=== PATIENT | female | born 1940 | race Caucasian/White ===

== ENCOUNTER 2017-04-20 09:15 | Inpatient (IN) | payer MEDICARE, OTHER ==
[2017-04-19 21:28] LABS: ALBUMIN 3.2 G/DL (3.5-5.0); CALCIUM, SERUM 8.6 MG/DL (8.5-10.4); CHLORIDE, SERUM 86 MMOL/L (96-112); CO2 (CARBON DIOXIDE) 30 MMOL/L (24-34); CREATININE 1.01 MG/DL (0.55-1.02); GFR AFRICAN AMERICAN 63 ML/MIN (>=60); GFR NON AFRICAN AMERICAN 54 ML/MIN (>=60); GLOBULIN 3.2 G/DL (2.5-4.1); GLUCOSE, SERUM 110 MG/DL (60-99); POTASSIUM, SERUM 3.9 MMOL/L (3.5-5.3); SGOT(AST) 98 U/L (5-40); SGPT(ALT) 116 U/L (5-65); SODIUM, SERUM 125 MMOL/L (135-148); TOTAL BILIRUBIN 0.4 MG/DL (0-1.2); TOTAL PROTEIN 6.4 G/DL (6.0-8.5)
[2017-04-19 21:35] LABS: ALKALINE PHOSPHATASE 71 U/L (45-117); BUN (BLOOD UREA NITROGEN) 12 MG/DL (6-23)
[~2017-04-20] VITALS: Ht 160 cm; Wt 69.0 kg
--- NOTE | ~2017-04-20 | DS ---
Discharge Summary [id number] [place]. [address] NAME: CHRISTINA WILKES : 42 STATUS : DIS IN PAT#: [id number] AGE: 77 ADM/REG DATE : 04/20/17 MR#: [id number] REPORT SERV DATE: 04/28/17 DICTATED BY: ASHISH FUNEZ DATE: 04/27/17 REPORT STATUS : Draft TRANSCRIBED BY: MODL DATE: 04/27/17 ADMISSION DATE: 04/20/2017 DISCHARGE DATE: 04/27/2017 DISCHARGE DIAGNOSES: 1. Urinary tract infection, culture showing Enterococcus, present on admission. 2. Fever. 3. Generalized weakness. 4. Hypertension. 5. Abdominal pain, resolved. 6. Chronic hyponatremia. 7. Transaminitis, resolved. 8. History of fibromyalgia. 9. Chronic prednisone therapy. DISCHARGE MEDICATIONS: Discharge medicines are as follows: Atenolol 25 mg twice a day; vitamin B12, 1000 mcg daily; calcium with vitamin D 500 mg three times a day; vitamin D3, 1000 units p.o. daily; Zestril 40 mg daily; multivitamin one tablet daily; Klor-Con 20 mEq twice a day; prednisone 5 mg daily; Bactrim DS one tablet twice a day for three more days to complete therapy after 04/30/2017; tramadol 50 mg four times a day p.r.n. for pain; hydrochlorothiazide 50 mg daily; Pepcid 40 mg twice a day; Systane ophthalmic drops twice a day p.r.n. in both eyes; and Prolia 60 mg subcutaneously every 6 months. HISTORY OF PRESENT ILLNESS: This is a pleasant 77-year-old white female who presented with fevers, abdominal pain, and weakness; please see initial H and P of Dr. Codey Headley as the patient was admitted to Hospitalist Service for further evaluation and treatment. Lab work and cultures were obtained, and the patient was given IV hydration initially. PROCEDURES AND IMAGING DURING THIS ADMISSION: Include 1. A CT scan of the abdomen and pelvis on 04/21/2017 that showed fatty infiltration of the liver and uncomplicated diverticulosis but no evidence for any acute diverticulitis. 2. An echocardiogram showing an ejection fraction of 55%, mild diastolic dysfunction, and mild left atrial enlargement. HOSPITAL COURSE: The patient was seen by Dr. Natanael Akins initially, and in review of her lab work, noted a procalcitonin that was elevated at 1.03. It was thought that the elevated liver test transaminitis was related to recent dosage of cefdinir, and of course, this was stopped and not continued. She had some diarrhea, but a C. difficile testing was negative, and she underwent the above-described CT scan of the abdomen and pelvis. The patient did continue to have some mild abdominal pain, some weakness, dyspnea, and slight decrease in her overall H and H. The echocardiogram was ordered and reviewed and is described above as well. Again, as stated, her ALT and AST both were declined. She was seen and evaluated by Physical Therapy and Occupational Therapy who did recommend rehab at discharge. I began seeing the patient on 04/24/2017 where she did have a slight low-grade fever of 100. Urinalysis showed greater than 180 white blood cells and a urine culture did come back finally showing an Enterobacter that was sensitive to Bactrim, and she was started on this Discharge Summary [address] [address] NAME: CHRISTINA WILKES : 42 STATUS : DIS IN PAT#: [id number] AGE: 77 ADM/REG DATE : 04/20/17 MR#: [id number] REPORT SERV DATE: 04/28/17 DICTATED BY: ASHISH FUNEZ DATE: 04/27/17 REPORT STATUS : Draft TRANSCRIBED BY: DELILAH DATE: 04/27/17 on 04/24/2017. I did start her on some IV fluids and decreased her lisinopril initially to make sure that her kidney function would be amendable to this Bactrim. I also added hydralazine to her regimen as well. Overall, the patient has tolerated the antibiotic well and has continued to progress well. She is still quite weak and the plan is still for rehab in long term facility at discharge. She did become approved for [facility] and was felt safe for discharge to that facility on 04/27/2017 with the above medication regimen as described. I have instructed her to follow up with her primary care doctor, Dr. Killian, after her discharge from [facility] and to follow up with her urologist if indicated in the future for recurrent urinary tract infections. I updated the family and the patient at bedside. Multiple questions were answered. Greater than 30 minutes spent on this discharge for medication, teaching, followup, planning, and further disposition. My collaborative physician is Dr. Ashish Funez. CSC/MODL Mateusz Johnson, RN TEACHER Ashish Funez MD / [id number] CC: MD Tim Neumann M.D.
--- NOTE | ~2017-04-20 | HP ---
History And Physical [address] [place]. [address] NAME: CHRISTINA WILKES : 42 STATUS : ADM IN [facility]#: [id number] AGE: 77 ADM/REG DATE : 04/20/17 MR#: [id number] REPORT SERV DATE: 04/20/17 DICTATED BY: ISAAC MILLER DATE: 04/20/17 REPORT STATUS : Draft TRANSCRIBED BY: MODL DATE: 04/20/17 DATE OF ADMISSION: 04/20/2017 REASON FOR ADMISSION: Direct admission from Dr. Killian's office for workup of fever of unknown origin, dehydration, and hyponatremia. CHIEF COMPLAINT: "I have been having fever and this abdominal pain and I am very very weak." HISTORY OF PRESENT ILLNESS: A 77-year-old white female with a history of hypertension, reflux, chronic low back pain, chronic joint pain from fibromyalgia along with chronic urinary tract infections. She is followed by Dr. Soria and had a cystoscopy done by Dr. Soria on Sunday, a week and a half ago, for workup of her frequent UTIs. She states that after the procedure she started having some abdominal pain and some weakness and felt like the procedure was not done under sterile conditions. The patient had a CT scan of her abdomen and pelvis done on April 11, which showed mild asymmetric prominence of the right renal pelvis of uncertain clinical significance. 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 Since she had the procedure done, she started having worsening weakness. On Sunday, she was very weak, and then over the weekend, her weakness continued, including on Sunday to the point where she did not even go to [facility]. Her had been urging her to go seek medical attention, but she kept declining. Then finally on Sunday, she went to [facility] and had a reported temperature of 102. With that and concern for UTI with those findings, she was sent directly to [facility] ER on Sunday where she was found to have a sodium level of around 125 and concern for urinary tract infection. The patient states that she did get a dose of Rocephin and immediately had a rash in the emergency room. She was discharged from the ER by Dr. Cartwright and prescribed cefdinir #14 tablets for her urinary tract infection. She continues to take that medication for several days. On Sunday night after her ER visit, she states that she woke up very confused and talking crazy had a very restless night, which is unusual for her. Then on Sunday through Sunday, she felt like she was a zombie and was just not as alert as she used to be. On , she contacted her physician who felt that she was allergic to cefdinir and started on Macrobid. She had one pill at the time of this dictation. She reported to her PCP's office yesterday and was noted to have a temp of 99.3. Repeat UA was ordered and other blood work was ordered, and given her overall dehydration, hyponatremia, and worsening symptoms, the patient presented to the [facility] as a direct admission. REVIEW OF SYSTEMS: The patient admits to continuing fever of 102, positive nausea and positive vomiting x1 episode today, chronic back pain, chronic joint pain, which she attributes to her fibromyalgia. Denies any tick-borne illnesses or exposure to tick bites. She admits to right lower and left lower quadrant abdominal pain. She admits to an atypical presentation for a UTI as she typically has urgency, but at this time, she is not. No chest pain, shortness of breath, cough, headaches, or neck pain. PAST MEDICAL HISTORY: Fibromyalgia, hypertension, and stress incontinence. History And Physical [address] [place]. [address] NAME: CHRISTINA WILKES : 42 STATUS : ADM IN [facility]#: [id number] AGE: 77 ADM/REG DATE : 04/20/17 MR#: [id number] REPORT SERV DATE: 04/20/17 DICTATED BY: ISAAC MILLER DATE: 04/20/17 REPORT STATUS : Draft TRANSCRIBED BY: MODMariajose DATE: 04/20/17 PAST SURGICAL HISTORY: She had two bladder surgeries, hysterectomy, bilateral salpingo- oophorectomy, shoulder surgery, cholecystectomy, repair of a bladder prolapse by Dr. Mon. SOCIAL HISTORY: She denies any alcohol, smoking, or illegal drug use. She is . She has four kids. 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 FAMILY HISTORY: Her parents had heart disease and diabetes. ALLERGIES: AUGMENTIN, WHICH CAUSES HER TO HAVE A RASH. PERCOCET, WHICH CAUSES MOUTH BLISTERS. MEDICATIONS: Include atenolol 25 mg twice a day, hydrochlorothiazide 25 mg once a day, potassium chloride 20 mEq daily, Flexeril 10 mg p.r.n., Nexium 40 mg daily, lisinopril 40 mg once a day, tramadol 50 mg three times a day p.r.n., calcium, prednisone 5 mg once a day, Pepcid 40 mg daily, and mag oxide daily. PHYSICAL EXAMINATION: VITAL SIGNS: Blood pressure is 139/63, temperature is 97.3, pulse is 78, and saturating 96% on room air. GENERAL: She is mildly ill appearing, weak appearing, but nontoxic, very pleasant, in no acute distress, alert and oriented x3. HEENT: Normocephalic and atraumatic head. Extraocular muscles are intact. Oropharynx is clear. Mouth is very dry. NECK: Supple. CARDIAC: Regular rhythm. No murmurs, rubs, or gallops. PULMONARY: Diminished breath sounds throughout. ABDOMEN: Soft. It is tender to palpation to the left lower quadrant and right lower quadrant. Positive bowel sounds. EXTREMITIES: Show no clubbing, cyanosis, or edema. NEUROLOGIC: No focal deficits. SKIN: Warm and dry. LABORATORY DATA: Labs show a sodium of 125, chloride 86, albumin 3.2, ALT 116 AST 98, T-bili is normal that was dated on 04/19/2017. Blood cultures from 04/16/2017 are no growth to date. IMAGING: Chest x-ray from 04/19/2017 shows no acute process. CT scan of the abdomen and pelvis dated 04/11/2017 shows mild asymmetric prominence of the right renal pelvis, uncertain clinical significance. No nephrolithiasis. No ureterolithiasis. There is dense beam-hardening artifact from the left total hip prosthesis, limiting the evaluation of the left lower bladder wall, otherwise, no bladder wall thickening or discrete mass, status post cholecystectomy, there is mild diverticulosis but no diverticulitis, chronic insufficiency fracture of the superior L1 vertebra. History And Physical [address] [address] NAME: CHRISTINA WILKES : 42 STATUS : ADM IN [facility]#: [id number] AGE: 77 ADM/REG DATE : 04/20/17 MR#: [id number] REPORT SERV DATE: 04/20/17 DICTATED BY: ISAAC MILLER DATE: 04/20/17 REPORT STATUS : Draft TRANSCRIBED BY: DELILAH DATE: 04/20/17 IMPRESSION: 1. Fever of unknown origin. 2. Transaminitis, likely secondary to adverse reaction to cefdinir, as evidenced by the temporal relation with abnormal LFTs now compared to normal LFTs on 04/16/2017 prior to initiation of cefdinir. 3. Hyponatremia. 4. Suspected adverse reaction to cefdinir. 5. Dehydration. 6. Right lower and left lower quadrant abdominal pain. 7. Reflux. 8. Fibromyalgia. 9. Hypertension. PLAN: 1. The plan is to do IV fluids. 2. Blood cultures with procalcitonin and UA and repeat urine culture. 3. Hepatitis panel. 4. We will hold off on any further imaging as the patient has already had a CT scan. We will await to see if the above intervention improves her symptoms. 5. Hold off on any antibiotics as there was no definitive source of infection at this time and the patient is not septic, so we will obtain a KUB to evaluate her abdominal pain. The patient is a full code. Dr. Akins to assume care of this patient on 04/21/2017. MINGO/DELILAH Isaac Miller MD / [id number] CC: Evelio Mckeon M.D. Ross A. Cohn, M.D.
[~2017-04-20 09:15] MED LIST: ATEN25 PO; CALTRA600D PO; CAPOTEN100 MG PO; CIP5 PO; FLEX PO; HCTZ25B PO; HYDROCHLOROT25 MG PO; HYDROCHLOROT50 MG PO; IMMUPLEX PO; KDUR10 PO; KLOR-CON M2020 MEQ PO; LOVENOX; MENEST0.625 MG OR; MULTIVITAMI1 PO; NEXIUM20 M1 PO; NEXIUM40 PO; OCUVITE PO; OS500+D PO; P5 PO; ULTRAM50 PO; VITAMIN B-121000 MC1 SL; ZYRTEC ALLGY10 MG PO
[2017-04-20 12:42] LABS: BASOPHILS 0.1 %; BASOPHILS ABSOLUTE 0.01 10/3/uL (0.0-0.16); EOSINOPHILS 0.7 %; EOSINOPHILS ABSOLUTE 0.07 10/3/uL (0.0-0.53); HEMATOCRIT 30.9 % (36.0-48.0); HEMOGLOBIN 10.5 g/dL (12.0-16.0); IMMATURE GRANULOCYTES 0.2 %; IMMATURE GRANULOCYTES ABSOLUTE 0.02 10/3/uL (0.0-0.11); LYMPHOCYTES 4.4 %; LYMPHOCYTES ABSOLUTE 0.41 10/3/uL (0.67-4.30); MANUAL DIFF NO %; MEAN CORPUSCULAR HEMOGLOB 28.6 pg (26.0-34.0); MEAN CORPUSCULAR VOLUME 84.2 fL (80-100); MONOCYTES 4.1 %; MONOCYTES ABSOLUTE 0.38 10/3/uL (0.21-1.20); NEUTROPHILS 90.5 %; NEUTROPHILS ABSOLUTE 8.49 10/3/uL (2.02-8.40); PLATELET COUNT 217 10/3/uL (150-400); RED CELL COUNT 3.67 10/6/uL (4.0-5.6); WHITE BLOOD CELLS 9.4 10/3/uL (4.5-10.5)
[2017-04-20 12:51] LABS: INTERNATIONAL NORMAL RATI 1.1 UNITS (-); PARTIAL THROMBO TIME 36.4 SEC (22.5-37.2)
[2017-04-20 12:53] LABS: PROTIME (NOT ORD) 14.1 SEC (12.0-14.5)
[2017-04-20 13:00] LABS: A/G RATIO 0.7 (0.7-1.9); ALBUMIN 2.8 G/DL (3.5-5.0); ALKALINE PHOSPHATASE 109 U/L (45-117); BUN (BLOOD UREA NITROGEN) 14 MG/DL (6-23); CALCIUM, SERUM 8.8 MG/DL (8.5-10.4); CHLORIDE, SERUM 89 MMOL/L (96-112); CO2 (CARBON DIOXIDE) 28 MMOL/L (24-34); CREATININE 0.98 MG/DL (0.55-1.02); GFR AFRICAN AMERICAN 65 ML/MIN (>=60); GFR NON AFRICAN AMERICAN 56 ML/MIN (>=60); GLUCOSE, SERUM 89 MG/DL (60-99); LACTATE 1.6 MMOL/L (0.3-2.4); PHOSPHORUS, SERUM 3.3 MG/DL (2.5-4.5); POTASSIUM, SERUM 3.8 MMOL/L (3.5-5.3); SGOT(AST) 196 U/L (5-40); SGPT(ALT) 192 U/L (5-65); SODIUM, SERUM 128 MMOL/L (135-148); TOTAL BILIRUBIN 0.5 MG/DL (0-1.2); TOTAL PROTEIN 6.8 G/DL (6.0-8.5)
[2017-04-20] MEDS ORDERED: MACROBID PO (13:19)
[2017-04-20] MEDS ORDERED: ULTRAM50 PO (13:20)
[2017-04-20] MEDS ORDERED: HYDROCHLOROT50 MG PO (13:20)
[2017-04-20] MEDS ORDERED: P5 PO (13:21)
[2017-04-20] MEDS ORDERED: ZESTRIL40 MG PO (13:21)
[2017-04-20] MEDS ORDERED: ATEN25 PO (13:22)
[2017-04-20] MEDS ORDERED: PEPCID40 MG PO (13:22)
[2017-04-20] MEDS ORDERED: CYANO1000T PO (13:23)
[2017-04-20] MEDS ORDERED: KLOR-CON M2020 MEQ PO (13:23)
[2017-04-20] MEDS ORDERED: MULTIVITAMI1 PO (13:23)
[2017-04-20] MEDS ORDERED: VITAMIN D31000 UNIT PO (13:24)
[2017-04-20] MEDS ORDERED: OS500+D PO (13:24)
[2017-04-20] MEDS ORDERED: SYSTANE OPH (13:25)
[2017-04-20] MEDS ORDERED: PROLIA60 MG/1 ML SC (13:26)
[2017-04-20 14:00] LABS: PROCALCITONIN 1.03 ng/mL (<0.5)
[2017-04-20 16:26] LABS: ASCORBIC ACID (UR NOT ORDER) NEG (NEG); BILIRUBIN, URINE NEGATIVE (NEG); KETONE, URINE NEGATIVE (NEG); LEUKOCYTE ESTERASE(NOT OR SMALL (NEG); WBC (NOT ORDERED) (RFLEX) 10 (0-5)
[2017-04-21 05:15] LABS: BASOPHILS 0.4 %; BASOPHILS ABSOLUTE 0.03 10/3/uL (0.0-0.16); EOSINOPHILS 2.2 %; EOSINOPHILS ABSOLUTE 0.16 10/3/uL (0.0-0.53); HEMATOCRIT 30.8 % (36.0-48.0); HEMOGLOBIN 10.7 g/dL (12.0-16.0); IMMATURE GRANULOCYTES 0.1 %; IMMATURE GRANULOCYTES ABSOLUTE 0.01 10/3/uL (0.0-0.11); LYMPHOCYTES 16.4 %; LYMPHOCYTES ABSOLUTE 1.18 10/3/uL (0.67-4.30); MEAN CORPUS HGB CONC 34.7 g/dL (32.0-36.0); MEAN CORPUSCULAR HEMOGLOB 29.2 pg (26.0-34.0); MEAN CORPUSCULAR VOLUME 84.2 fL (80-100); MEAN PLATELET VOLUME 8.9 fL (9.2-13.0); MONOCYTES 4.6 %; MONOCYTES ABSOLUTE 0.33 10/3/uL (0.21-1.20); NEUTROPHILS 76.3 %; NEUTROPHILS ABSOLUTE 5.49 10/3/uL (2.02-8.40); PLATELET COUNT 244 10/3/uL (150-400); RED CELL COUNT 3.66 10/6/uL (4.0-5.6); WHITE BLOOD CELLS 7.2 10/3/uL (4.5-10.5)
[2017-04-21 05:16] LABS: MANUAL DIFF NO %
[2017-04-21 05:35] LABS: A/G RATIO 0.7 (0.7-1.9); ALBUMIN 2.6 G/DL (3.5-5.0); ALKALINE PHOSPHATASE 108 U/L (45-117); BUN (BLOOD UREA NITROGEN) 11 MG/DL (6-23); CALCIUM, SERUM 8.4 MG/DL (8.5-10.4); CHLORIDE, SERUM 96 MMOL/L (96-112); CO2 (CARBON DIOXIDE) 26 MMOL/L (24-34); CREATININE 0.86 MG/DL (0.55-1.02); GFR AFRICAN AMERICAN 76 ML/MIN (>=60); GFR NON AFRICAN AMERICAN 66 ML/MIN (>=60); GLOBULIN 3.9 G/DL (2.5-4.1); GLUCOSE, SERUM 94 MG/DL (60-99); POTASSIUM, SERUM 3.9 MMOL/L (3.5-5.3); SGOT(AST) 116 U/L (5-40); SGPT(ALT) 178 U/L (5-65); SODIUM, SERUM 130 MMOL/L (135-148); TOTAL BILIRUBIN 0.4 MG/DL (0-1.2); TOTAL PROTEIN 6.5 G/DL (6.0-8.5)
[2017-04-21 13:17] LABS: FREE T4 1.36 NG/DL (0.76-1.46); TROPONIN I <0.02 NG/ML (<0.05)
[2017-04-22 05:09] LABS: BASOPHILS 0.8 %; BASOPHILS ABSOLUTE 0.05 10/3/uL (0.0-0.16); EOSINOPHILS 2.9 %; EOSINOPHILS ABSOLUTE 0.17 10/3/uL (0.0-0.53); HEMATOCRIT 28.9 % (36.0-48.0); HEMOGLOBIN 9.7 g/dL (12.0-16.0); IMMATURE GRANULOCYTES 0.3 %; IMMATURE GRANULOCYTES ABSOLUTE 0.02 10/3/uL (0.0-0.11); LYMPHOCYTES 18.1 %; LYMPHOCYTES ABSOLUTE 1.07 10/3/uL (0.67-4.30); MEAN CORPUS HGB CONC 33.6 g/dL (32.0-36.0); MEAN CORPUSCULAR HEMOGLOB 28.4 pg (26.0-34.0); MEAN CORPUSCULAR VOLUME 84.8 fL (80-100); MONOCYTES 6.9 %; MONOCYTES ABSOLUTE 0.41 10/3/uL (0.21-1.20); PLATELET COUNT 238 10/3/uL (150-400); RBC DISTRIBUTION WIDTH 14.3 % (12.0-16.0); RED CELL COUNT 3.41 10/6/uL (4.0-5.6); WHITE BLOOD CELLS 5.9 10/3/uL (4.5-10.5)
[2017-04-22 05:24] LABS: A/G RATIO 0.6 (0.7-1.9); ALBUMIN 2.5 G/DL (3.5-5.0); ALKALINE PHOSPHATASE 90 U/L (45-117); BUN (BLOOD UREA NITROGEN) 8 MG/DL (6-23); CALCIUM, SERUM 8.6 MG/DL (8.5-10.4); CHLORIDE, SERUM 95 MMOL/L (96-112); CO2 (CARBON DIOXIDE) 27 MMOL/L (24-34); CREATININE 0.87 MG/DL (0.55-1.02); GFR AFRICAN AMERICAN 75 ML/MIN (>=60); GFR NON AFRICAN AMERICAN 65 ML/MIN (>=60); GLOBULIN 3.9 G/DL (2.5-4.1); GLUCOSE, SERUM 83 MG/DL (60-99); SGOT(AST) 67 U/L (5-40); SGPT(ALT) 134 U/L (5-65); SODIUM, SERUM 128 MMOL/L (135-148); TOTAL BILIRUBIN 0.4 MG/DL (0-1.2); TOTAL PROTEIN 6.4 G/DL (6.0-8.5)
[2017-04-22 05:25] LABS: MANUAL DIFF NO %
[2017-04-22 06:08] LABS: PROCALCITONIN 0.36 ng/mL (<0.5)
[2017-04-22 15:30] LABS: RETICULOCYTE COUNT 0.7 % (0.5-2.5); RETICULOCYTE COUNT ABSOLUTE 22.2 10/3/uL (20.2-119.8)
[2017-04-22 15:48] LABS: T PROTEIN (ELECT)(NOT OR 6.4 G/DL (6.0-8.5)
[2017-04-22 16:45] LABS: FERRITIN 339 NG/ML (8-252); IRON BINDING CAPACITY 203 MCG/DL (225-410); IRON, SERUM 18 MCG/DL (35-150)
[2017-04-23 05:02] LABS: A/G RATIO 0.5 (0.7-1.9); ALBUMIN 2.3 G/DL (3.5-5.0); ALKALINE PHOSPHATASE 85 U/L (45-117); CALCIUM, SERUM 8.4 MG/DL (8.5-10.4); CHLORIDE, SERUM 94 MMOL/L (96-112); CO2 (CARBON DIOXIDE) 27 MMOL/L (24-34); CREATININE 1.08 MG/DL (0.55-1.02); GFR AFRICAN AMERICAN 58 ML/MIN (>=60); GFR NON AFRICAN AMERICAN 50 ML/MIN (>=60); GLOBULIN 4.5 G/DL (2.5-4.1); SGPT(ALT) 111 U/L (5-65); SODIUM, SERUM 130 MMOL/L (135-148); TOTAL BILIRUBIN 0.6 MG/DL (0-1.2); TOTAL PROTEIN 6.8 G/DL (6.0-8.5)
[2017-04-23 05:04] LABS: BUN (BLOOD UREA NITROGEN) 12 MG/DL (6-23); GLUCOSE, SERUM 120 MG/DL (60-99); POTASSIUM, SERUM 4.2 MMOL/L (3.5-5.3); SGOT(AST) 56 U/L (5-40)
[2017-04-23 05:13] LABS: BASOPHILS 0.6 %; BASOPHILS ABSOLUTE 0.04 10/3/uL (0.0-0.16); EOSINOPHILS 2.9 %; EOSINOPHILS ABSOLUTE 0.19 10/3/uL (0.0-0.53); HEMATOCRIT 28.5 % (36.0-48.0); HEMOGLOBIN 9.6 g/dL (12.0-16.0); IMMATURE GRANULOCYTES 0.6 %; IMMATURE GRANULOCYTES ABSOLUTE 0.04 10/3/uL (0.0-0.11); LYMPHOCYTES 16.2 %; LYMPHOCYTES ABSOLUTE 1.06 10/3/uL (0.67-4.30); MEAN CORPUS HGB CONC 33.7 g/dL (32.0-36.0); MEAN CORPUSCULAR HEMOGLOB 28.7 pg (26.0-34.0); MEAN CORPUSCULAR VOLUME 85.3 fL (80-100); MONOCYTES 7.8 %; MONOCYTES ABSOLUTE 0.51 10/3/uL (0.21-1.20); NEUTROPHILS 71.9 %; NEUTROPHILS ABSOLUTE 4.72 10/3/uL (2.02-8.40); PLATELET COUNT 281 10/3/uL (150-400); RBC DISTRIBUTION WIDTH 14.3 % (12.0-16.0); RED CELL COUNT 3.34 10/6/uL (4.0-5.6); WHITE BLOOD CELLS 6.6 10/3/uL (4.5-10.5)
[2017-04-23 05:14] LABS: MANUAL DIFF NO %
[2017-04-23 10:02] LABS: HEPATITIS B SURFACE ANTIGEN NON-REACTIVE (NON-REACT)
[2017-04-23 10:17] LABS: HEPATITIS C ANTIBODY NON-REACTIVE (NON-REACT)
[2017-04-23 10:18] LABS: HEPATITIS B CORE AB IGM NON-REACTIVE (NON-REAC)
[2017-04-23 10:19] LABS: HEP A ANTIBODY IGM NON-REACTIVE (NON-REACT)
[2017-04-23 14:31] LABS: ASCORBIC ACID (UR NOT ORDER) NEG (NEG); BILIRUBIN, URINE NEGATIVE (NEG); KETONE, URINE NEGATIVE (NEG); LEUKOCYTE ESTERASE(NOT OR LARGE (NEG)
[2017-04-23 14:32] LABS: WBC (NOT ORDERED) (RFLEX) > 182 (0-5)
[2017-04-23 16:39] LABS: HEMATOCRIT 28.3 % (36.0-48.0); HEMOGLOBIN 9.9 g/dL (12.0-16.0)
[2017-04-24 11:43] LABS: A/G 0.88 RATIO (0.9-2.10); ALB RELATIVE % 46.9 % (60.0-89.0); ALPHA 1 (ELECTRO) 0.41 GM/DL (0.1-0.4); ALPHA 1 RELAT % (NOT ORD) 6.4 % (1.0-4.0); ALPHA 2 (ELECTRO) 1.13 GM/DL (0.5-1.10); ALPHA 2 RELAT % 17.7 % (4.5-26.0); BETA GLOBULIN (SPE) 0.91 GM/DL (0.60-1.30); BETA RELATIVE % 14.2 % (9.0-22.0); GAMMA GLOBULIN (SPE) 0.95 G/DL (0.70-1.60); GAMMA RELAT % 14.8 % (6.0-22.0)
[2017-04-25 06:58] LABS: BASOPHILS 0.1 %; BASOPHILS ABSOLUTE 0.01 10/3/uL (0.0-0.16); EOSINOPHILS 1.3 %; EOSINOPHILS ABSOLUTE 0.13 10/3/uL (0.0-0.53); HEMATOCRIT 29.8 % (36.0-48.0); HEMOGLOBIN 10.4 g/dL (12.0-16.0); IMMATURE GRANULOCYTES 0.7 %; IMMATURE GRANULOCYTES ABSOLUTE 0.07 10/3/uL (0.0-0.11); LYMPHOCYTES 12.4 %; LYMPHOCYTES ABSOLUTE 1.26 10/3/uL (0.67-4.30); MEAN CORPUS HGB CONC 34.9 g/dL (32.0-36.0); MEAN CORPUSCULAR HEMOGLOB 29.2 pg (26.0-34.0); MEAN CORPUSCULAR VOLUME 83.7 fL (80-100); MEAN PLATELET VOLUME 9.5 fL (9.2-13.0); MONOCYTES 8.3 %; MONOCYTES ABSOLUTE 0.84 10/3/uL (0.21-1.20); NEUTROPHILS 77.2 %; NEUTROPHILS ABSOLUTE 7.84 10/3/uL (2.02-8.40); RBC DISTRIBUTION WIDTH 14.6 % (12.0-16.0); RED CELL COUNT 3.56 10/6/uL (4.0-5.6)
[2017-04-25 07:00] LABS: MANUAL DIFF NO %; PLATELET COUNT 408 10/3/uL (150-400); WHITE BLOOD CELLS 10.2 10/3/uL (4.5-10.5)
[2017-04-25 07:09] LABS: BUN (BLOOD UREA NITROGEN) 11 MG/DL (6-23); CALCIUM, SERUM 8.6 MG/DL (8.5-10.4); CHLORIDE, SERUM 95 MMOL/L (96-112); CREATININE 0.92 MG/DL (0.55-1.02); GFR AFRICAN AMERICAN 70 ML/MIN (>=60); GFR NON AFRICAN AMERICAN 60 ML/MIN (>=60); GLUCOSE, SERUM 116 MG/DL (60-99); POTASSIUM, SERUM 4.2 MMOL/L (3.5-5.3); SODIUM, SERUM 128 MMOL/L (135-148)
[2017-04-25 07:10] LABS: CO2 (CARBON DIOXIDE) 22 MMOL/L (24-34)
[2017-04-26 04:30] LABS: BASOPHILS 0.1 %; BASOPHILS ABSOLUTE 0.01 10/3/uL (0.0-0.16); EOSINOPHILS 0.5 %; EOSINOPHILS ABSOLUTE 0.05 10/3/uL (0.0-0.53); HEMATOCRIT 27.5 % (36.0-48.0); HEMOGLOBIN 9.6 g/dL (12.0-16.0); IMMATURE GRANULOCYTES 0.8 %; IMMATURE GRANULOCYTES ABSOLUTE 0.08 10/3/uL (0.0-0.11); LYMPHOCYTES 11.5 %; LYMPHOCYTES ABSOLUTE 1.14 10/3/uL (0.67-4.30); MANUAL DIFF NO %; MEAN CORPUS HGB CONC 34.9 g/dL (32.0-36.0); MEAN CORPUSCULAR HEMOGLOB 29.3 pg (26.0-34.0); MEAN CORPUSCULAR VOLUME 83.8 fL (80-100); MEAN PLATELET VOLUME 9.3 fL (9.2-13.0); MONOCYTES 9.6 %; MONOCYTES ABSOLUTE 0.95 10/3/uL (0.21-1.20); NEUTROPHILS 77.5 %; NEUTROPHILS ABSOLUTE 7.65 10/3/uL (2.02-8.40); PLATELET COUNT 394 10/3/uL (150-400); RBC DISTRIBUTION WIDTH 14.6 % (12.0-16.0); RED CELL COUNT 3.28 10/6/uL (4.0-5.6); WHITE BLOOD CELLS 9.9 10/3/uL (4.5-10.5)
[2017-04-26 04:47] LABS: BUN (BLOOD UREA NITROGEN) 11 MG/DL (6-23); CALCIUM, SERUM 8.5 MG/DL (8.5-10.4); CHLORIDE, SERUM 97 MMOL/L (96-112); CO2 (CARBON DIOXIDE) 22 MMOL/L (24-34); CREATININE 1.02 MG/DL (0.55-1.02); GFR AFRICAN AMERICAN 62 ML/MIN (>=60); GFR NON AFRICAN AMERICAN 53 ML/MIN (>=60); GLUCOSE, SERUM 101 MG/DL (60-99); POTASSIUM, SERUM 4.6 MMOL/L (3.5-5.3); SODIUM, SERUM 128 MMOL/L (135-148)
== END 2017-04-27 16:09 | DRG 690 ==
LOC: ENRESERV → ENRESERVTM → ENRESERVDT → 6NO 09:40
PROVIDERS: Family Medicine; Internal Medicine; Nurse Practitioner Family
DX: N39.0 Urinary tract infection, site not specified (principal); E87.1 Hypo-osmolality and hyponatremia; E86.0 Dehydration; K76.0 Fatty (change of) liver, not elsewhere classified; M79.7 Fibromyalgia; K21.9 Gastro-esophageal reflux disease without esophagitis; I10 Essential (primary) hypertension; K57.30 Diverticulosis of large intestine without perforation or abscess without bleeding; T36.1X5A Adverse effect of cephalosporins and other beta-lactam antibiotics, initial encounter; M54.9 Dorsalgia, unspecified; Z87.440 Personal history of urinary (tract) infections; Z90.49 Acquired absence of other specified parts of digestive tract; B95.2 Enterococcus as the cause of diseases classified elsewhere; Z79.52 Long term (current) use of systemic steroids; R74.0 Nonspecific elevation of levels of transaminase and lactic acid dehydrogenase [LDH]; R19.7 Diarrhea, unspecified
CPT/HCPCS: 71010; 71020; 74000; 74177; 80048; 80053; 80074; 81001; 82150; 82272; 82607; 82728; 83540; 83550; 83605; 83615; 83690; 83735; 83880; 84100; 84145; 84155; 84165; 84439; 84443; 84484; 85014; 85018; 85025; 85045; 85610; 85730; 87040; 87077; 87086; 87186; 87493; 87493-59; 93306; 97116-GP; 97162-GP; A9270-GY; G8978-CL-GP; G8979-CJ-GP; J0360; J1940; J3475; Q9967